=== PATIENT | female | born 1965 | race Caucasian/White ===

== ENCOUNTER 2018-09-15 11:56 | Day surgery (SDC) | payer BC ==
[2018-09-15] MEDS ORDERED: PROPOFOL 40 ML (16:28)
== END 2018-09-15 17:55 | disposition home or self-care (01) ==
LOC: GIL 11:56
DX: Z12.11 Encounter for screening for malignant neoplasm of colon (principal); K64.8 Other hemorrhoids; E07.9 Disorder of thyroid, unspecified
CPT/HCPCS: 45378